=== PATIENT | female | born 1995 ===

== ENCOUNTER 2018-01-03 14:44 | Outpatient (CLI) | payer OTHER ==
--- NOTE | 2018-01-06 10:18 | Magnetic Resonance Report ---
MRI RIGHT KNEE WITHOUT CONTRAST: 01/03/18 CLINICAL: Right knee pain. TECHNIQUE: Sagittal proton density fat sat, sagittal STIR and T2 sequences, coronal T2 fat sat and T1 and axial gradient T2*sequences on a 1.5 Priya magnet. FINDINGS: The medial meniscus is intact. Torn lateral meniscus. The anterior horn is truncated and abnormal oblique signal in the body of the meniscus extends to the inferior articular surface. A 9 mm intrameniscal cyst of the body of the lateral meniscus. No bone contusion or fracture. Thinning of the lateral femoral cartilage but no full-thickness defect in the cartilage. The cruciate ligaments and collateral ligaments are intact. Normal patella with intact cartilage, tendon and retinaculum. Intact posterolateral corner structures including the popliteus tendon. Small knee joint effusion. No popliteal cyst. IMPRESSION: 1. Remote tear of the lateral meniscus involving the anterior horn and body. A 9 mm intrameniscal cyst of the body of the lateral meniscus. 2. Normal medial meniscus. 3. No ligamentous injury.
== END 2018-01-03 14:45 | disposition home or self-care (01) ==
LOC: MRI 14:44 → SPVIMAG 14:45
PROVIDERS: ATTEND Family Medicine
DX: S83.281A Other tear of lateral meniscus, current injury, right knee, initial encounter (principal); X58.XXXA Exposure to other specified factors, initial encounter; Y93.89 Activity, other specified; Y92.89 Other specified places as the place of occurrence of the external cause; Y99.8 Other external cause status
CPT/HCPCS: 73721